=== PATIENT | male | born 1965 | race Caucasian/White ===

== ENCOUNTER 2016-11-25 08:06 | Outpatient (RCR) | payer OTHER ==
[~2016-11-25 08:06] MED LIST: CIPR-225 PO; CIPR500T78 PO; HYDR-3714 PO; HYDR-3816 PO; IBUP-1773 PO; KCL20TCR; KETO10TA PO; ONDA4TAB11 PO; TAMS0.4C98 PO
[2016-11-25 09:01] LABS: BUN/CREATININE RATIO 16; CALCIUM 9.3 MG/DL (8.5-10.1); CARBON DIOXIDE 22 MMOL/L (21-32); CHLORIDE 105 MMOL/L (98-107); CREATININE SERUM 0.91 MG/DL (0.60-1.30); GFR ESTIMATED > 60; GLUCOSE 113 MG/DL (70-105); PHOSPHORUS 2.1 MG/DL (2.3-4.7); POTASSIUM 3.7 MMOL/L (3.6-5.0); SODIUM 140 MMOL/L (135-145); URIC ACID 8.7 MG/DL (2.6-7.2)
--- NOTE | 2016-11-25 09:17 | Diagnostic Imaging Report ---
Supine view of the abdomen. INDICATION: History of stones. FINDINGS: When compared to 06/21/2015, no change in right pelvic phleboliths is seen. No definite urinary tract calcifications seen. Surgical clips in the upper right abdomen noted. IMPRESSION: No definite urinary tract stone is identified. Dictated by: Dictated on workstation # [id number]
[2017-02-19] MEDS ORDERED: POTA15TA9 (09:11)
[2017-02-19] MEDS ORDERED: FLUT9.9S NS (10:58)
[2017-02-19] MEDS ORDERED: AZIT250T12 PO (10:58)
== END 2017-02-23 | disposition home or self-care (01) ==
LOC: LAB 08:06
PROVIDERS: ATTEND Urology
DX: N40.0 Benign prostatic hyperplasia without lower urinary tract symptoms (principal); N20.0 Calculus of kidney
CPT/HCPCS: 36415; 74000; 80048; 82140; 82340; 82507; 82570; 83735; 83945; 83986; 84100; 84105; 84133; 84153; 84300; 84392; 84550; 84560

== ENCOUNTER 2017-02-19 08:54 | Emergency (ER) | payer OTHER ==
[~2017-02-19] VITALS: Ht 185.4 cm; Wt 112.5 kg
--- OUTSIDE RECORDS SUMMARY | 2017-02-19 09:00 | XMS REPORT | Continuity of Care Document ---
Author Author [facility] Organization [facility] Address Unknown Phone Unavailable Allergies Active Description Code Type Severity Reaction Onset Reported/Identified Relationship to Patient Clinical Status Yes No Known Drug Allergies [id number] Drug Allergy Unknown N/A 08/27/2007 Medications There is no data. Problems Date Dx Coded Attending Type Code Diagnosis Diagnosed By 06/19/2015 PASTOR BRANDON DO, Ot N20.1 CALCULUS OF URETER 06/19/2015 PASTOR BRANDON DO Ot Z90.49 ACQUIRED ABSENCE OF OTHER SPECIFIED PART 06/19/2015 ALMITA TINEO MD, Ot N20.1 CALCULUS OF URETER 06/19/2015 ALMITA TINEO MD Ot R11.2 NAUSEA WITH VOMITING, UNSPECIFIED 06/21/2015 DAHLIA DO, JAMAR K Ot N20.1 CALCULUS OF URETER 06/21/2015 DAHLIA DO, JAMAR K Ot R10.31 RIGHT LOWER QUADRANT PAIN 06/21/2015 DAHLIA DO, JAMAR K Ot Z87.442 PERSONAL HISTORY OF URINARY CALCULI 06/21/2015 ALMITA TINEO MD Ot N20.1 CALCULUS OF URETER 06/21/2015 ALMITA TINEO MD Ot R11.2 NAUSEA WITH VOMITING, UNSPECIFIED 06/22/2015 DAHLIA DO, JAMAR K Ot N20.1 CALCULUS OF URETER 06/22/2015 DAHLIA DO, JAMAR K Ot R10.31 RIGHT LOWER QUADRANT PAIN 06/22/2015 DAHLIA DO, JAMAR K Ot Z87.442 PERSONAL HISTORY OF URINARY CALCULI 06/25/2015 PASTOR BRANDON DO Ot N20.1 CALCULUS OF URETER 06/25/2015 PASTOR BRANDON DO Ot Z90.49 ACQUIRED ABSENCE OF OTHER SPECIFIED PART 08/17/2015 KANIKA CAIN MD Ot N20.1 CALCULUS OF URETER 09/19/2015 KANIKA CAIN MD Ot N20.1 CALCULUS OF URETER 11/27/2016 KANIKA CAIN MD Ot N20.0 CALCULUS OF KIDNEY 11/27/2016 KANIKA CAIN MD Ot N40.0 BENIGN PROSTATIC HYPERPLASIA WITHOUT LOW 01/06/2017 KANIKA CAIN MD Ot N20.0 CALCULUS OF KIDNEY 01/06/2017 KANIKA CAIN MD Ot N40.0 BENIGN PROSTATIC HYPERPLASIA WITHOUT LOW Procedures There is no data. Results Test Result Range Whole blood basic metabolic panel - 11/25/16 08:39 Serum or plasma sodium measurement (moles/volume) 140 mmol/L 135-145 Serum or plasma potassium measurement (moles/volume) 3.7 mmol/L 3.6-5.0 Serum or plasma chloride measurement (moles/volume) 105 mmol/L 98-107 Carbon dioxide 22 mmol/L 21-32 Serum or plasma anion gap determination (moles/volume) 13 mmol/L 5-14 Serum or plasma urea nitrogen measurement (mass/volume) 15 mg/dL 7-18 Serum or plasma creatinine measurement (mass/volume) 0.91 mg/dL 0.60-1.30 Serum or plasma urea nitrogen/creatinine mass ratio 16 NRG Serum or plasma creatinine measurement with calculation of estimated glomerular filtration rate > NRG Serum or plasma glucose measurement (mass/volume) 113 mg/dL 70-105 Serum or plasma calcium measurement (mass/volume) 9.3 mg/dL 8.5-10.1 Serum or plasma uric acid measurement (mass/volume) - 11/25/16 08:39 Serum or plasma uric acid measurement (mass/volume) 8.7 mg/dL 2.6-7.2 Serum or plasma phosphate measurement (mass/volume) - 11/25/16 08:39 Serum or plasma phosphate measurement (mass/volume) 2.1 mg/dL 2.3-4.7 Prostate specific ag [mass/volume] in serum or plasma - 11/25/16 08:39 Prostate specific ag [mass/volume] in serum or plasma 2.79 % 0.00-4.00 CD3+CD4+ (T4 helper) cells/100 cells in blood - 11/26/16 11:20 Timed urine calcium measurement (mass/volume) 114 % < 250 Urine oxalate detection 75 < 45 Urine uric acid measurement (mass/volume) 943 % < 700 Urine citrate measurement (mass/volume) 1025 % > 320 Urine pH measurement 7.5 5.5-7.0 24 hour urine specimen volume measurement 2.01 % > 2.00 Sodium urate/total calculus mass ratio by infrared spectroscopy 256 % < 200 Sulfites [presence] in urine by test strip 19 < 30 Urine phosphate measurement (mass/volume) 1349 % < 1100 Urine magnesium measurement (mass/volume) 113 % > 60 Urine calcium oxalate measurement 1.07 < 2.00 Urine calcium phosphate crystals detection by computer assisted method 1.82 < 2.00 24 hour urine sodium urate (saturation fraction) 4.89 < 2.00 Triple phosphate crystals detection in urine sediment by light microscopy 17.60 < 75.00 24 hour urine uric acid (saturation fraction) 0.07 < 2.00 Urine ammonium measurement 18 % 14-62 Urine potassium measurement 108 % 19-135 24 hour urine creatinine measurement (mass/time) 2362 % 800-2000 Clinical [place] review of results See Below NRG Encounters ACCT No. Visit Date/Time Discharge Status Pt. Type Provider Facility Loc./Unit Complaint [id number] 11/25/2016 08:06:00 11/25/2016 23:59:59 CLS Outpatient KANIKA CAIN MD [facility] N40.0 [id number] 09/20/2015 00:07:00 09/20/2015 23:59:59 CLS Preadmit KANIKA CAIN MD [facility] [id number] 07/15/2015 10:04:00 09/19/2015 00:01:00 DIS Outpatient KANIKA CAIN MD [facility] [id number] 06/21/2015 04:03:00 06/21/2015 05:48:00 DIS Emergency JAMAR VILLAGOMEZ DO [facility] [id number] 06/19/2015 16:11:00 06/19/2015 18:33:00 DIS Emergency ALMITA TINEO MD [facility] [id number] 06/19/2015 03:03:00 06/19/2015 04:58:00 DIS Emergency PASTOR BRANDON DO [facility] [id number] 08/15/2013 05:00:00 08/15/2013 06:59:00 DIS Emergency
[2017-02-19] MEDS ORDERED: POTA15TA9 (09:11)
--- NOTE | 2017-02-19 10:54 | ED General ---
General Chief Complaint: Cough/Cold/Flu Symptoms Stated Complaint: COUGH,SORE THROAT Nursing Triage Note: AMB TO ROOM C/O COUGH CONGESTION FOR 1 WEEK Nursing Sepsis Screen: No Definite Risk Source of Information: Patient Exam Limitations: No Limitations Allergies and Home Medications Allergies Coded Allergies: No Known Drug Allergies (Verified , 08/27/07) Home Medications Ketorolac Tromethamine 10 Mg Tablet, 10 MG PO Q6H, #15 Prescribed by: JAMAR VILLAGOMEZ on 06/21/15 0500 Potassium Citrate 15 Meq Tab, (Reported) Tamsulosin HCl 0.4 Mg Cap, 0.4 MG PO DAILY, #10 Prescribed by: JAMAR VILLAGOMEZ on 06/21/15 0500 Past Xrcaezw-Jbcooe-Uxocgs Hx Patient Social History Alcohol Use: Denies Use Recreational Drug Use: No Smoking Status: Never a Smoker Recent Foreign Travel: No Contact w/Someone Who Travel: No Recent Infectious Disease Expo: No Recent Hopitalizations: No Seasonal Allergies Seasonal Allergies: No Surgeries History of Surgeries: Yes (RIGHT HAND) Surgeries: Gallbladder, Orthopedic Respiratory History of Respiratory Disorde: No Cardiovascular History of Cardiac Disorders: No Neurological History of Neurological Disord: No Reproductive System Hx Reproductive Disorders: No Genitourinary Genitourinary Disorders: Kidney Stones Gastrointestinal History of Gastrointestinal Di: No Musculoskeletal History of Musculoskeletal Dis: No Endocrine History of Endocrine Disorders: No Cancer History of Cancer: No Psychosocial History of Psychiatric Problem: No Integumentary History of Skin or Integumenta: No Blood Transfusions History of Blood Disorders: No Adverse Reaction to a Blood Tr: No Physical Exam Vital Signs Vital Sign - Last 12Hours 02/19/17 08:59 Temp 100.7 Pulse 92 Resp 18 B/P (MAP) 131/87 (102) Pulse Ox 95 Capillary Refill : Less Than 3 Seconds Progress/Results/Core Measures Suspected Sepsis Recent Fever Within 48 Hours: No Infection Criteria Present: None New/Unexplained Altered Menta: No Sepsis Screen: No Definite Risk Sepsis Diagnosis: SIRS Temperature:100.7 Pulse: 92 Respiratory Rate: 18 Blood Pressure 131 /87 Mean: 102 Results/Orders Micro Results Microbiology 02/19/17 Influenza Types A,B Antigen ([place]) - Final, Complete My Orders Orders - MELINDA ANDUJAR MD Influenza A And B Antigens (02/19/17 09:01) Chest Pa/Lat (2 View) (02/19/17 09:47) Vital Signs/I&O Vital Sign - Last 12Hours 02/19/17 08:59 Temp 100.7 Pulse 92 Resp 18 B/P (MAP) 131/87 (102) Pulse Ox 95 Capillary Refill : Less Than 3 Seconds Blood Pressure Mean: 102 Departure Impression Impression: Primary Impression: Community acquired pneumonia Qualified Codes: J18.1 - Lobar pneumonia, unspecified organism Additional Impression: Postnasal drip Disposition: 01 HOME, SELF-CARE Condition: Stable Departure-Patient Inst. Decision time for Depature: 10:52 Referrals: ANDREAS CEVALLOS MD (PCP/Family) Primary Care Physician Patient Instructions: Pneumonia, Adult (DC) Add. Discharge Instructions: Complete your antibiotic as prescribed. You may take Tylenol (acetaminophen) and/or ibuprofen for pain or fever. Use Flonase for your nasal congestion and postnasal drip. Follow-up with Dr. Cevallos in about one week for repeat exam and consideration of repeat x-ray. Return to the emergency room promptly if symptoms worsen. All discharge instructions reviewed with patient and/or family. Voiced understanding. Scripts Fluticasone Propionate (Flonase Allergy Relief) 9.9 Ml [place].susp 2 SPRAY NS DAILY, #1 SPRAY Prov: MELINDA ANDUJAR MD 02/19/17 Azithromycin (Azithromycin) 250 Mg Tablet 250 MG PO UD, #6 TAB TAKE 2 TABLETS ON DAY ONE THEN TAKE 1 TABLET DAILY FOR FOUR MORE DAYS Prov: MELINDA ANDUJAR MD 02/19/17 MELINDA ANDUJAR MD Feb 19, 2017 10:54
[2017-02-19] MEDS ORDERED: FLUT9.9S NS (10:58)
[2017-02-19] MEDS ORDERED: AZIT250T12 PO (10:58)
[2017-02-19 11:02] VITALS: BP 129/72
== END 2017-02-19 11:07 | disposition home or self-care (01) ==
LOC: EDUNIT# 08:54 → ER 08:56
DX: J18.9 Pneumonia, unspecified organism (principal); Z87.442 Personal history of urinary calculi
CPT/HCPCS: 71020; 87804; 99282

== ENCOUNTER → 2017-05-20 | Outpatient (CLI) | payer OTHER ==
[~2017-05-20] MED LIST changes: +AZIT250T12 PO; +FLUT9.9S NS; +HYDR-34 PO; -HYDR-3816 PO; +POTA15TA9
[2017-05-20 17:12] LABS: BUN/CREATININE RATIO 14; CALCIUM 9.3 MG/DL (8.5-10.1); CARBON DIOXIDE 30 MMOL/L (21-32); CHLORIDE 102 MMOL/L (98-107); CREATININE SERUM 0.85 MG/DL (0.60-1.30); GFR ESTIMATED > 60; GLUCOSE 90 MG/DL (70-105); PHOSPHORUS 3.1 MG/DL (2.3-4.7); POTASSIUM 3.1 MMOL/L (3.6-5.0); SODIUM 139 MMOL/L (135-145); URIC ACID 6.4 MG/DL (2.6-7.2)
== END ==
LOC: LAB 16:44
PROVIDERS: ATTEND Urology
DX: N40.0 Benign prostatic hyperplasia without lower urinary tract symptoms (principal); N20.9 Urinary calculus, unspecified
CPT/HCPCS: 36415; 80048; 84100; 84153; 84550